=== PATIENT | female | born 1940 | race Hispanic/Latino ===

== ENCOUNTER 2019-06-25 12:34 | Emergency (ER) | payer OTHER ==
[~2019-06-25 12:34] MED LIST: CARV6.25 PO; FERS325 PO; FOLI0.8T22 PO; LOSA100T58 PO; MECL12.585 PO; OMEP20TA25 PO; SIMV20TA6 PO; TRAM50TA4 PO
[2019-06-25] MEDS ORDERED: AMLO10TA7 PO (13:39)
[2019-06-25] MEDS ORDERED: TORS20TA4 PO (13:39)
[2019-06-25] MEDS ORDERED: SODI650T PO (13:39)
== END 2019-06-25 12:48 | disposition left against medical advice (07) ==
LOC: EDH 12:34
DX: R94.4 Abnormal results of kidney function studies (principal); I10 Essential (primary) hypertension; Z87.891 Personal history of nicotine dependence; Z88.5 Allergy status to narcotic agent
CPT/HCPCS: 99281

== ENCOUNTER 2021-05-13 23:08 | Inpatient (IN) | payer OTHER ==
[~2021-05-13] VITALS: Ht 152.4 cm; Wt 40.3 kg
[~2021-05-13 23:08] MED LIST changes: +AMLO-258 PO; +MECL-226 PO; -MECL12.585 PO; +SIMV-43 PO; -SIMV20TA6 PO; +SODI650T PO; +TORS20TA4 PO; -TRAM50TA4 PO
[2021-05-13 23:09] VITALS: BP 145/43
[2021-05-13 23:53] VITALS: BP 130/85
[2021-05-14] VITALS (10 sets, daily range): BP systolic 124–154; BP diastolic 43–78
[2021-05-14 00:43] LABS: CREATININE 1.3 mg/dL (0.5-1.5); POTASSIUM 4.1 mmol/L (3.5-5.1)
[2021-05-14 00:48] LABS: ALBUMIN 2.8 g/dL (3.5-5.0); BILIRUBIN,TOTAL 0.2 mg/dL (0.2-1.0); TOTAL PROTEIN, SERUM 6.3 g/dL (6.0-8.3)
[2021-05-14 01:04] LABS: BASOPHILS % (AUTO) 0.6 % (0.0-5.0); EOSINOPHILS % (AUTO) 2.9 % (0.0-8.0); LYMPHOCYTES % (AUTO) 23.4 % (21.0-51.0); MEAN CORPUSCULAR HEMOGLOBIN 27.9 pg (27.0-33.0); MEAN CORPUSCULAR HGB CONC 31.1 g/dL (32.0-36.0); MEAN CORPUSCULAR VOLUME 89.5 fL (79-99); MONOCYTES % (AUTO) 6.8 % (3.0-13.0); NEUTROPHILS % (AUTO) 65.9 % (40.0-77.0); PLATELET COUNT (AUTO) 235 K/uL (130-400); RED BLOOD CELL COUNT(AUTO) 2.19 MIL/uL (4.00-5.50); RED CELL DISTRIBUTION WIDTH 16.7 % (11.0-15.5); WHITE BLOOD COUNT (AUTO) 11.1 K/uL (4.8-10.8)
[2021-05-14 01:14] LABS: HEMATOCRIT 19.6 % (36-48)
[2021-05-14] MEDS ORDERED: PANTOPRAZOLE 40 MG/VIAL IVP STA (02:29)
[2021-05-14] MEDS ORDERED: ZOLPIDEM TARTRATE 5 MG TAB PO PRN (02:30)
[2021-05-14] MEDS ORDERED: ONDANSETRON 4MG INJ IV PRN (02:30)
[2021-05-14] MEDS ORDERED: ACETAMINOPHEN 325 MG TAB PO PRN ×2 (02:30)
[2021-05-14] MEDS ORDERED: NITROGLYCERIN 0.4 MG SL TAB SL PRN (02:30)
[2021-05-14] MEDS ORDERED: FERROUS SULFATE 325 MG TABLET.DR PO SCH (05:00)
[2021-05-14] MEDS ORDERED: MECLIZINE HCL 12.5 MG TABLET PO PRN (05:00)
[2021-05-14 05:43] LABS: ABG BASE EXCESS -5.3 mmol/L (-2.0-3.0); ABG HCO3 17.7 mmol/L (21.0-28.0); ABG OXYGEN SATURATION 97.5 % (95.0-99.0); ABG PCO2 28 mmHg (32-45)
[2021-05-14] MEDS ORDERED: MECLIZINE HCL 25 MG TABLET ONE (06:41)
[2021-05-14 08:28] LABS: INR 1.06 (0.85-1.15); PROTHROMBIN TIME 11.5 SEC (9.6-11.6)
[2021-05-14 08:29] LABS: PARTIAL THROMBOPLASTIN TIME 25.6 SEC (26.3-35.5)
[2021-05-14 08:43] LABS: FIBRINOGEN 431 mg/dL (180-350)
[2021-05-14 09:09] LABS: D-DIMER 434 ng/mL (0-500)
[2021-05-14] MEDS: CARVEDILOL 25 MG TABLET PO SCH ×2 (09:39→20:37)
[2021-05-14 13:22] LABS: BASOPHILS % (AUTO) 0.6 % (0.0-5.0); EOSINOPHILS % (AUTO) 2.4 % (0.0-8.0); HEMATOCRIT 25.3 % (36-48); LYMPHOCYTES % (AUTO) 19.4 % (21.0-51.0); MEAN CORPUSCULAR HEMOGLOBIN 28.1 pg (27.0-33.0); MEAN CORPUSCULAR HGB CONC 31.6 g/dL (32.0-36.0); MEAN CORPUSCULAR VOLUME 88.8 fL (79-99); MONOCYTES % (AUTO) 6.7 % (3.0-13.0); NEUTROPHILS % (AUTO) 70.5 % (40.0-77.0); PLATELET COUNT (AUTO) 199 K/uL (130-400); RED BLOOD CELL COUNT(AUTO) 2.85 MIL/uL (4.00-5.50); RED CELL DISTRIBUTION WIDTH 17.2 % (11.0-15.5); WHITE BLOOD COUNT (AUTO) 10.9 K/uL (4.8-10.8)
[2021-05-14] MEDS: AMLODIPINE-BENAZEPRIL 5-10 MG PO SCH (16:05)
[2021-05-14] MEDS: ATORVASTATIN 40 MG TABLET PO SCH (20:37)
[2021-05-14] MEDS ORDERED: MAGNESIUM CITRATE 296 ML SOLUTION PO ONE (23:30)
[2021-05-14] MEDS ORDERED: PANTOPRAZOLE 40 MG/VIAL IVP SCH (23:30)
[2021-05-15] VITALS (7 sets, daily range): BP systolic 111–180; BP diastolic 46–70
[2021-05-15] MEDS ORDERED: MAGNESIUM CITRATE 296 ML SOLUTION ONE (01:01)
[2021-05-15] MEDS: SUCRALFATE 1 GM TABLET PO SCH ×4 (01:05→18:30)
[2021-05-15 02:12] LABS: HEMATOCRIT 26.4 % (36-48)
[2021-05-15] MEDS ORDERED: LABETALOL 20MG VIAL IV ONE (04:57)
[2021-05-15 07:03] LABS: BASOPHILS % (AUTO) 0.8 % (0.0-5.0); EOSINOPHILS % (AUTO) 2.8 % (0.0-8.0); HEMATOCRIT 25.4 % (36-48); LYMPHOCYTES % (AUTO) 21.3 % (21.0-51.0); MEAN CORPUSCULAR HEMOGLOBIN 28.2 pg (27.0-33.0); MEAN CORPUSCULAR HGB CONC 31.9 g/dL (32.0-36.0); MEAN CORPUSCULAR VOLUME 88.5 fL (79-99); MONOCYTES % (AUTO) 6.9 % (3.0-13.0); NEUTROPHILS % (AUTO) 67.8 % (40.0-77.0); PLATELET COUNT (AUTO) 211 K/uL (130-400); RED BLOOD CELL COUNT(AUTO) 2.87 MIL/uL (4.00-5.50); RED CELL DISTRIBUTION WIDTH 17.2 % (11.0-15.5); WHITE BLOOD COUNT (AUTO) 7.6 K/uL (4.8-10.8)
[2021-05-15 07:21] LABS: ALBUMIN 2.6 g/dL (3.5-5.0); BILIRUBIN,TOTAL 0.4 mg/dL (0.2-1.0); CREATININE 1.2 mg/dL (0.5-1.5); POTASSIUM 4.1 mmol/L (3.5-5.1); TOTAL PROTEIN, SERUM 5.9 g/dL (6.0-8.3)
[2021-05-15] MEDS ORDERED: PANTOPRAZOLE 40 MG/VIAL IVP SCH (09:00)
[2021-05-15] MEDS: AMLODIPINE-BENAZEPRIL 5-10 MG PO SCH (09:24)
[2021-05-15] MEDS: CARVEDILOL 25 MG TABLET PO SCH ×2 (09:25→21:10)
[2021-05-15] MEDS: APIXABAN 2.5 MG TABLET PO SCH ×2 (09:26→21:14)
[2021-05-15 13:07] LABS: BASOPHILS % (AUTO) 0.9 % (0.0-5.0); EOSINOPHILS % (AUTO) 2.8 % (0.0-8.0); HEMATOCRIT 25.4 % (36-48); LYMPHOCYTES % (AUTO) 21.6 % (21.0-51.0); MEAN CORPUSCULAR HEMOGLOBIN 28.8 pg (27.0-33.0); MEAN CORPUSCULAR HGB CONC 31.9 g/dL (32.0-36.0); MEAN CORPUSCULAR VOLUME 90.4 fL (79-99); NEUTROPHILS % (AUTO) 67.4 % (40.0-77.0); PLATELET COUNT (AUTO) 206 K/uL (130-400); RED BLOOD CELL COUNT(AUTO) 2.81 MIL/uL (4.00-5.50); RED CELL DISTRIBUTION WIDTH 17.2 % (11.0-15.5)
[2021-05-15] MEDS ORDERED: IOHEXOL 350 MG/ML 100ML INFUS..BTL IV ONE (15:20)
[2021-05-15] MEDS: ATORVASTATIN 40 MG TABLET PO SCH (21:09)
[2021-05-15] MEDS: PANTOPRAZOLE 40 MG TAB DR PO SCH (21:09)
[2021-05-16] VITALS: BP 129/57
[2021-05-16] MEDS: SUCRALFATE 1 GM TABLET PO SCH ×5 (00:12→23:44)
[2021-05-16 04:00] VITALS: BP 120/45
[2021-05-16 05:02] LABS: HEMATOCRIT 23.8 % (36-48); MEAN CORPUSCULAR HEMOGLOBIN 27.8 pg (27.0-33.0); MEAN CORPUSCULAR HGB CONC 30.7 g/dL (32.0-36.0); MEAN CORPUSCULAR VOLUME 90.5 fL (79-99); PLATELET COUNT (AUTO) 194 K/uL (130-400); RED BLOOD CELL COUNT(AUTO) 2.63 MIL/uL (4.00-5.50); RED CELL DISTRIBUTION WIDTH 16.9 % (11.0-15.5); WHITE BLOOD COUNT (AUTO) 7.1 K/uL (4.8-10.8)
[2021-05-16 05:20] LABS: CREATININE 1.3 mg/dL (0.5-1.5); POTASSIUM 3.8 mmol/L (3.5-5.1)
[2021-05-16] MEDS: 0.9%NACL 1000ML 1,000 ML IV SCH ×3 (07:00→16:10)
[2021-05-16 08:52] VITALS: BP 143/55
[2021-05-16] MEDS: PANTOPRAZOLE 40 MG TAB DR PO SCH ×2 (10:30→19:22)
[2021-05-16] MEDS: AMLODIPINE-BENAZEPRIL 5-10 MG PO SCH (10:30)
[2021-05-16] MEDS: CARVEDILOL 25 MG TABLET PO SCH ×2 (10:30→19:20)
[2021-05-16 12:11] VITALS: BP 112/50
[2021-05-16 15:56] VITALS: BP 140/51
[2021-05-16] MEDS: ATORVASTATIN 40 MG TABLET PO SCH (19:20)
[2021-05-16 20:00] VITALS: BP 125/56
[2021-05-17] VITALS (7 sets, daily range): BP systolic 130–163; BP diastolic 53–70
[2021-05-17] MEDS: SUCRALFATE 1 GM TABLET PO SCH ×4 (05:07→23:34)
[2021-05-17 05:12] LABS: HEMATOCRIT 23.6 % (36-48); MEAN CORPUSCULAR HEMOGLOBIN 28.5 pg (27.0-33.0); MEAN CORPUSCULAR HGB CONC 31.8 g/dL (32.0-36.0); MEAN CORPUSCULAR VOLUME 89.7 fL (79-99); RED BLOOD CELL COUNT(AUTO) 2.63 MIL/uL (4.00-5.50); RED CELL DISTRIBUTION WIDTH 17.2 % (11.0-15.5); WHITE BLOOD COUNT (AUTO) 7.4 K/uL (4.8-10.8)
[2021-05-17 05:37] LABS: INR 1.11 (0.85-1.15)
[2021-05-17 05:39] LABS: PARTIAL THROMBOPLASTIN TIME 29.3 SEC (26.3-35.5)
[2021-05-17 05:49] LABS: CREATININE 1.3 mg/dL (0.5-1.5); POTASSIUM 3.7 mmol/L (3.5-5.1)
[2021-05-17] MEDS: 0.9%NACL 1000ML 1,000 ML IV SCH (05:56)
[2021-05-17] MEDS: PANTOPRAZOLE 40 MG TAB DR PO SCH ×2 (08:17→19:34)
[2021-05-17] MEDS: CARVEDILOL 25 MG TABLET PO SCH ×2 (08:17→19:34)
[2021-05-17] MEDS: POLYETHYLENE GLYCOL 3350 17 GM POWD.PACK PO SCH (08:17)
[2021-05-17] MEDS: AMLODIPINE-BENAZEPRIL 5-10 MG PO SCH (09:33)
[2021-05-17] MEDS: ATORVASTATIN 40 MG TABLET PO SCH (19:34)
[2021-05-18] VITALS (14 sets, daily range): BP systolic 107–165; BP diastolic 49–68
[2021-05-18] MEDS: SUCRALFATE 1 GM TABLET PO SCH ×4 (04:56→23:51)
[2021-05-18 05:13] LABS: HEMATOCRIT 26.1 % (36-48); MEAN CORPUSCULAR HEMOGLOBIN 28.3 pg (27.0-33.0); MEAN CORPUSCULAR VOLUME 91.3 fL (79-99); RED BLOOD CELL COUNT(AUTO) 2.86 MIL/uL (4.00-5.50); RED CELL DISTRIBUTION WIDTH 17.1 % (11.0-15.5); WHITE BLOOD COUNT (AUTO) 5.9 K/uL (4.8-10.8)
[2021-05-18 05:23] LABS: CREATININE 1.2 mg/dL (0.5-1.5); POTASSIUM 3.5 mmol/L (3.5-5.1)
[2021-05-18] MEDS: PANTOPRAZOLE 40 MG TAB DR PO SCH ×2 (09:00→20:37)
[2021-05-18] MEDS: POLYETHYLENE GLYCOL 3350 17 GM POWD.PACK PO SCH (09:00)
[2021-05-18] MEDS: CARVEDILOL 25 MG TABLET PO SCH ×2 (10:00→20:37)
[2021-05-18] MEDS ORDERED: PROPOFOL 10 MG/ML 20ML VIAL IV ONE (11:47)
[2021-05-18] MEDS ORDERED: LIDOCAINE PF 100MG/5ML (2%) SYRINGE 5ML ONE (11:48)
[2021-05-18] MEDS: AMLODIPINE-BENAZEPRIL 5-10 MG PO SCH (15:49)
[2021-05-18] MEDS ORDERED: PEG 3350/NA SULF,BICARB,CL/KCL 4000 ML SOLN PO SCH (19:00)
[2021-05-18] MEDS ORDERED: LACTULOSE 20 GM/30 ML UDCUP PO SCH (19:00)
[2021-05-18] MEDS: ATORVASTATIN 40 MG TABLET PO SCH (20:37)
[2021-05-19] VITALS (7 sets, daily range): BP systolic 147–173; BP diastolic 60–75
[2021-05-19 04:58] LABS: MEAN CORPUSCULAR HEMOGLOBIN 27.7 pg (27.0-33.0); MEAN CORPUSCULAR HGB CONC 31.1 g/dL (32.0-36.0); MEAN CORPUSCULAR VOLUME 89.1 fL (79-99); RED BLOOD CELL COUNT(AUTO) 3.03 MIL/uL (4.00-5.50); RED CELL DISTRIBUTION WIDTH 16.9 % (11.0-15.5); WHITE BLOOD COUNT (AUTO) 7.2 K/uL (4.8-10.8)
[2021-05-19 05:19] LABS: CREATININE 1.1 mg/dL (0.5-1.5); POTASSIUM 3.3 mmol/L (3.5-5.1)
[2021-05-19] MEDS: SUCRALFATE 1 GM TABLET PO SCH ×4 (05:39→23:39)
[2021-05-19] MEDS: POLYETHYLENE GLYCOL 3350 17 GM POWD.PACK PO SCH (09:00)
[2021-05-19] MEDS: PANTOPRAZOLE 40 MG TAB DR PO SCH ×2 (09:00→21:05)
[2021-05-19] MEDS: CARVEDILOL 25 MG TABLET PO SCH ×2 (09:46→21:05)
[2021-05-19] MEDS: AMLODIPINE-BENAZEPRIL 5-10 MG PO SCH (09:46)
[2021-05-19] MEDS ORDERED: LACTULOSE 20 GM/30 ML UDCUP ONE ×2 (14:16→15:04)
[2021-05-19] MEDS ORDERED: PEG 3350/NA SULF,BICARB,CL/KCL 4000 ML SOLN PO SCH (15:00)
[2021-05-19] MEDS ORDERED: LACTULOSE 20 GM/30 ML UDCUP PO SCH (21:00)
[2021-05-19] MEDS: ATORVASTATIN 40 MG TABLET PO SCH (21:04)
[2021-05-20] VITALS (12 sets, daily range): BP systolic 94–192; BP diastolic 44–81
[2021-05-20] MEDS: LABETALOL 20MG VIAL IV PRN ×3 (00:13→13:35)
[2021-05-20] MEDS ORDERED: LACTULOSE 20 GM/30 ML UDCUP PO SCH (05:00)
[2021-05-20] MEDS: SUCRALFATE 1 GM TABLET PO SCH ×2 (05:30→11:30)
[2021-05-20] MEDS: CARVEDILOL 25 MG TABLET PO SCH (08:10)
[2021-05-20] MEDS: AMLODIPINE-BENAZEPRIL 5-10 MG PO SCH (08:10)
[2021-05-20] MEDS: POLYETHYLENE GLYCOL 3350 17 GM POWD.PACK PO SCH (08:12)
[2021-05-20] MEDS: PANTOPRAZOLE 40 MG TAB DR PO SCH (08:12)
[2021-05-20 08:13] LABS: HEMATOCRIT 27.7 % (36-48); MEAN CORPUSCULAR HEMOGLOBIN 28.8 pg (27.0-33.0); MEAN CORPUSCULAR HGB CONC 32.5 g/dL (32.0-36.0); MEAN CORPUSCULAR VOLUME 88.8 fL (79-99); RED BLOOD CELL COUNT(AUTO) 3.12 MIL/uL (4.00-5.50); RED CELL DISTRIBUTION WIDTH 16.9 % (11.0-15.5); WHITE BLOOD COUNT (AUTO) 6.9 K/uL (4.8-10.8)
[2021-05-20 08:17] LABS: POTASSIUM 3.2 mmol/L (3.5-5.1)
[2021-05-20] MEDS ORDERED: POTASSIUM CHLORIDE 20MEQ/100ML 100 ML IV PRN (09:30)
[2021-05-20] MEDS ORDERED: POTASSIUM CHLORIDE 10% ELIXIR 20 MEQ/15 ML UDCUP PO PRN (09:30)
[2021-05-20] MEDS ORDERED: KCL 20 MEQ ERTAB PO PRN (09:30)
[2021-05-20] MEDS ORDERED: LIDOCAINE HCL-MPF 1% 2ML VIAL IV PRN (09:30)
[2021-05-20] MEDS ORDERED: LIDOCAINE HCL 1% 20 ML VIAL ONE (12:11)
[2021-05-20] MEDS ORDERED: PROPOFOL 10 MG/ML 20ML VIAL IV ONE (12:11)
[2021-05-20] MEDS ORDERED: LABE5VIA3 IV (16:21)
[2021-05-20] MEDS ORDERED: NITR0.4T50 SL (16:22)
== END 2021-05-20 17:50 | DRG 812 ==
LOC: EDH 23:08 → OBSVTOIN 05-14 02:20 → EDHIP 05-14 02:20 → 3DH 05-15 02:12
PROVIDERS: ADMIT Internal Medicine; ATTEND Internal Medicine
PROC: 30233N1 Transfusion of Nonautologous Red Blood Cells into Peripheral Vein, Percutaneous Approach (ICD-10-PCS; principal; 2021-05-14)
PROC: 0DJ08ZZ Inspection of Upper Intestinal Tract, Via Natural or Artificial Opening Endoscopic (ICD-10-PCS; 2021-05-18)
PROC: 0DBL8ZZ Excision of Transverse Colon, Via Natural or Artificial Opening Endoscopic (ICD-10-PCS; 2021-05-20)
DX: D62 Acute posthemorrhagic anemia (principal); N17.9 Acute kidney failure, unspecified; E87.2 Acidosis; K22.10 Ulcer of esophagus without bleeding; N18.30 Chronic kidney disease, stage 3 unspecified; K29.00 Acute gastritis without bleeding; R19.5 Other fecal abnormalities; K63.5 Polyp of colon; K64.1 Second degree hemorrhoids; K57.30 Diverticulosis of large intestine without perforation or abscess without bleeding; I12.9 Hypertensive chronic kidney disease with stage 1 through stage 4 chronic kidney disease, or unspecified chronic kidney disease; T18.128A Food in esophagus causing other injury, initial encounter; E78.5 Hyperlipidemia, unspecified; J44.9 Chronic obstructive pulmonary disease, unspecified; I51.3 Intracardiac thrombosis, not elsewhere classified; E78.00 Pure hypercholesterolemia, unspecified; K21.00 Gastro-esophageal reflux disease with esophagitis, without bleeding; K59.00 Constipation, unspecified; Z20.822 Contact with and (suspected) exposure to COVID-19; Z88.5 Allergy status to narcotic agent; Z87.891 Personal history of nicotine dependence; Z86.73 Personal history of transient ischemic attack (TIA), and cerebral infarction without residual deficits
CPT/HCPCS: 36415; 36600; 43235; 45380; 70450; 71045; 71260; 74176; 74177; 80048; 80053; 82270; 82803; 85014; 85018; 85025; 85027; 85378; 85384; 85610; 85730; 86677; 86850; 86900; 86901; 86923; 87635; 93005; 97039; A4606; C9113; G0378; J2001; J2704; J3490; J7030; P9016; Q9967

== ENCOUNTER 2021-07-10 16:44 | Observation (INO) | payer OTHER ==
[~2021-07-10] VITALS: Ht 147.3 cm; Wt 43.6 kg
[2021-07-10 15:15] VITALS: BP 163/65
[~2021-07-10 16:44] MED LIST changes: -FERS325 PO; -FOLI0.8T22 PO; +LABE5VIA3 IV; -LOSA100T58 PO; +NITR0.4T50 SL; -SODI650T PO; -TORS20TA4 PO
[2021-07-10 17:36] LABS: BASOPHILS % (AUTO) 0.6 % (0.0-5.0); EOSINOPHILS % (AUTO) 5.7 % (0.0-8.0); HEMATOCRIT 27.2 % (36-48); LYMPHOCYTES % (AUTO) 20.5 % (21.0-51.0); MEAN CORPUSCULAR HGB CONC 30.9 g/dL (32.0-36.0); MEAN CORPUSCULAR VOLUME 87.5 fL (79-99); MONOCYTES % (AUTO) 7.8 % (3.0-13.0); PLATELET COUNT (AUTO) 222 K/uL (130-400); RED BLOOD CELL COUNT(AUTO) 3.11 MIL/uL (4.00-5.50); WHITE BLOOD COUNT (AUTO) 10.6 K/uL (4.8-10.8)
[2021-07-10 17:50] LABS: CARBON DIOXIDE 21 mmol/L (21-32); CHLORIDE 109 mmol/L (101-111); CREATININE 1.4 mg/dL (0.5-1.5); GLOMERULAR FILTR. RATE CALC 39 mL/min (>60); GLUCOSE,RANDOM 116 mg/dL (70-105); POTASSIUM 4.4 mmol/L (3.5-5.1); SODIUM SERUM 139 mmol/L (136-145); UREA NITROGEN, BLOOD 46 mg/dL (7-18)
[2021-07-10 17:59] LABS: ALANINE AMINOTRANSFERASE 74 U/L (12-78); ALBUMIN 3.1 g/dL (3.5-5.0); ASPARTATE AMINOTRANSFERASE 50 U/L (10-37); BILIRUBIN,TOTAL 0.2 mg/dL (0.2-1.0); CRP QUANTITATIVE < 2.00 mg/L (0.00-9.0); TOTAL PROTEIN, SERUM 6.9 g/dL (6.0-8.3)
[2021-07-10 18:28] LABS: APPEARANCE,URINE Clear (CLEAR); BILIRUBIN,URINE Negative (NEGATIVE); COLOR,URINE Yellow (YELLOW); GLUCOSE, URINE (UA) Negative (NEGATIVE); KETONES,URINE Negative (NEGATIVE); LEUKOCYTE ESTERASE ,URINE Small (NEGATIVE); NITRATE,URINE Negative (NEGATIVE); OCCULT BLOOD,URINE Negative (NEGATIVE); PH,URINE 5.5 (5.0-8.0); PROTEIN,URINE POS 2+ mg/dL (NEGATIVE); UROBILINOGEN,URINE 0.2 mg/dL (0.2-1.0)
[2021-07-10 18:35] LABS: RBC,URINE 0-1 /HPF (0-1)
[2021-07-10 18:36] LABS: BACTERIA,URINE Rare /HPF (None Seen); SQUAMOUS EPITHELIAL CELL,UR Rare /HPF (0-2); YEAST,URINE BUDDING Few /HPF (None Seen)
[2021-07-10] MEDS ORDERED: FLUCONAZOLE 100 MG TAB PO ONE (19:00)
[2021-07-10] MEDS ORDERED: CEFTRIAXONE 1G VIAL IVP ONE (19:00)
[2021-07-10] MEDS ORDERED: LACTULOSE 20 GM/30 ML UDCUP PO PRN (20:00)
[2021-07-10] MEDS ORDERED: HYDRALAZINE 20MG/ML VIAL IV PRN (20:00)
[2021-07-10] MEDS ORDERED: DEXTROSE 50%-WATER 50 ML DISP.SYRIN IV PRN (20:00)
[2021-07-10] MEDS ORDERED: POTASSIUM CHLORIDE 10% ELIXIR 20 MEQ/15 ML UDCUP PO PRN (20:00)
[2021-07-10] MEDS ORDERED: ACETAMINOPHEN 325 MG TAB PO PRN (20:00)
[2021-07-10] MEDS ORDERED: KCL 20 MEQ ERTAB PO PRN (20:00)
[2021-07-10] MEDS ORDERED: LIDOCAINE HCL-MPF 1% 2ML VIAL IV PRN (20:00)
[2021-07-10] MEDS ORDERED: GLUCAGON 1MG KIT 1 MG ML IM PRN (20:00)
[2021-07-10] MEDS ORDERED: ONDANSETRON 4MG INJ IV PRN (20:00)
[2021-07-10] MEDS ORDERED: POTASSIUM CHLORIDE 20MEQ/100ML 100 ML IV PRN (20:00)
[2021-07-10] MEDS ORDERED: MECLIZINE HCL 12.5 MG TABLET PO PRN (21:30)
[2021-07-10] MEDS: HEPARIN 5,000 UNIT VIAL SQ SCH (22:13)
[2021-07-11 04:00] VITALS: BP 129/53
[2021-07-11 04:35] LABS: BASOPHILS % (AUTO) 0.8 % (0.0-5.0); EOSINOPHILS % (AUTO) 6.3 % (0.0-8.0); LYMPHOCYTES % (AUTO) 22.5 % (21.0-51.0); MEAN CORPUSCULAR VOLUME 87.1 fL (79-99); MONOCYTES % (AUTO) 7.8 % (3.0-13.0); NEUTROPHILS % (AUTO) 62.3 % (40.0-77.0); PLATELET COUNT (AUTO) 221 K/uL (130-400); RED BLOOD CELL COUNT(AUTO) 3.33 MIL/uL (4.00-5.50); WHITE BLOOD COUNT (AUTO) 9.7 K/uL (4.8-10.8)
[2021-07-11 04:59] LABS: BILIRUBIN,TOTAL 0.2 mg/dL (0.2-1.0); CREATININE 1.2 mg/dL (0.5-1.5); MAGNESIUM 1.8 mg/dL (1.80-2.40); PHOSPHORUS 3.9 mg/dL (2.5-4.9); POTASSIUM 4.3 mmol/L (3.5-5.1); TOTAL PROTEIN, SERUM 6.8 g/dL (6.0-8.3)
[2021-07-11 08:00] VITALS: BP 138/55
[2021-07-11] MEDS: CARVEDILOL 6.25 MG TABLET PO SCH ×2 (08:46→21:05)
[2021-07-11] MEDS: AMLODIPINE 5 MG TAB PO SCH (08:46)
[2021-07-11] MEDS: PANTOPRAZOLE 40 MG TAB DR PO SCH (08:46)
[2021-07-11] MEDS: HEPARIN 5,000 UNIT VIAL SQ SCH ×2 (09:03→21:03)
[2021-07-11 12:00] VITALS: BP 126/56
[2021-07-11 16:00] VITALS: BP 139/57
[2021-07-11 20:20] VITALS: BP 124/55
[2021-07-11] MEDS ORDERED: SIMVASTATIN 20 MG TABLET PO SCH (21:00)
[2021-07-11] MEDS ORDERED: LACTATED RINGERS 1000ML 1,000 ML IV SCH (21:00)
[2021-07-11] MEDS ORDERED: CEFTRIAXONE 1G VIAL IVP SCH (21:00)
[2021-07-11 23:47] VITALS: BP 109/44
[2021-07-12 04:21] LABS: BASOPHILS % (AUTO) 0.9 % (0.0-5.0); HEMATOCRIT 23.8 % (36-48); LYMPHOCYTES % (AUTO) 34.8 % (21.0-51.0); MEAN CORPUSCULAR HEMOGLOBIN 27.1 pg (27.0-33.0); MEAN CORPUSCULAR HGB CONC 31.5 g/dL (32.0-36.0); MEAN CORPUSCULAR VOLUME 85.9 fL (79-99); MONOCYTES % (AUTO) 8.4 % (3.0-13.0); NEUTROPHILS % (AUTO) 50.8 % (40.0-77.0); PLATELET COUNT (AUTO) 205 K/uL (130-400); RED BLOOD CELL COUNT(AUTO) 2.77 MIL/uL (4.00-5.50); RED CELL DISTRIBUTION WIDTH 16.2 % (11.0-15.5); WHITE BLOOD COUNT (AUTO) 7.4 K/uL (4.8-10.8)
[2021-07-12 04:38] LABS: CREATININE 1.6 mg/dL (0.5-1.5); POTASSIUM 4.4 mmol/L (3.5-5.1)
[2021-07-12 04:45] VITALS: BP 124/56
[2021-07-12 08:37] VITALS: BP 127/56
[2021-07-12] MEDS: PANTOPRAZOLE 40 MG TAB DR PO SCH (09:32)
[2021-07-12] MEDS: AMLODIPINE 5 MG TAB PO SCH (09:32)
[2021-07-12] MEDS: CARVEDILOL 6.25 MG TABLET PO SCH (09:32)
[2021-07-12] MEDS: HEPARIN 5,000 UNIT VIAL SQ SCH (09:42)
[2021-07-12 11:42] VITALS: BP 107/45
[2021-07-12] MEDS ORDERED: CEFT1VIA14 IVP (14:24)
[2021-07-12 16:05] VITALS: BP 122/56
[2021-07-12] MEDS ORDERED: CEFTRIAXONE 1G VIAL IVP SCH (21:00)
== END 2021-07-12 16:55 ==
LOC: EDH 16:44 → EDHIP 19:50 → 3DH 23:25
PROVIDERS: ADMIT Internal Medicine; ATTEND Internal Medicine
DX: R29.6 Repeated falls (principal); R53.1 Weakness; K92.2 Gastrointestinal hemorrhage, unspecified; N17.9 Acute kidney failure, unspecified; D63.8 Anemia in other chronic diseases classified elsewhere; E78.5 Hyperlipidemia, unspecified; K21.9 Gastro-esophageal reflux disease without esophagitis; I12.9 Hypertensive chronic kidney disease with stage 1 through stage 4 chronic kidney disease, or unspecified chronic kidney disease; N18.9 Chronic kidney disease, unspecified; B96.20 Unspecified Escherichia coli [E. coli] as the cause of diseases classified elsewhere; E78.00 Pure hypercholesterolemia, unspecified; N39.0 Urinary tract infection, site not specified; R80.9 Proteinuria, unspecified; Z79.899 Other long term (current) drug therapy; Z86.73 Personal history of transient ischemic attack (TIA), and cerebral infarction without residual deficits; Z90.49 Acquired absence of other specified parts of digestive tract; Z98.890 Other specified postprocedural states; Z87.891 Personal history of nicotine dependence; W18.30XA Fall on same level, unspecified, initial encounter; Y92.89 Other specified places as the place of occurrence of the external cause; Y93.89 Activity, other specified; Y99.8 Other external cause status
CPT/HCPCS: 36415 ×3; 70450; 71045; 74176; 80048; 80053 ×2; 81001; 82550; 83735; 83874; 84100; 84484 ×2; 85025 ×3; 86140; 87077; 87088; 87186; 93005; 96372 ×3; 96374; 96375; 96376; 97039 ×3; 97161; 97530; 99285; G0378 ×44; J0360; J0696; J1644 ×4; J7120